=== PATIENT | male | born 1960 | race Caucasian/White ===

== ENCOUNTER 2020-03-29 11:50 | Emergency (ER) | payer BC ==
[~2020-03-29] VITALS: Ht 180.3 cm; Wt 95.5 kg
[2020-03-29] MEDS ORDERED: naproxen (11:57)
[2020-03-29] MEDS ORDERED: DERMABOND TOPICAL SKIN ADHESIVE TOP ONE (13:30)
[2020-03-29] MEDS ORDERED: BOOSTRIX/ADACEL VACCINE (DIPHTH/PERTUSS/ACELL/TETANUS) 0.5ML SYR IM ONE (13:30)
[2020-03-29] MEDS ORDERED: LIDOCAINE 1% MDV 20ML VIAL SC ONE (13:30)
[2020-03-29] MEDS ORDERED: KEFL500C17 PO (14:02)
[2020-03-29 14:10] VITALS: BP 128/83
--- NOTE | 2020-03-29 15:45 | REP ---
REASON FOR EXAM: Injury to the second digit of the left hand. There are no priors for comparison. FINDINGS: There is soft tissue injury to the fingertip 2nd digit. The joint spaces are symmetric and relatively well maintained. There is no evidence of acute fracture or destructive osseous lesion. IMPRESSION: Negative. Electronically Signed by Parish Montgomery DO 03/29/2020 04:16 P
== END 2020-03-29 14:18 | disposition home or self-care (01) ==
LOC: M ED 11:50
DX: S61.211A Laceration without foreign body of left index finger without damage to nail, initial encounter (principal); S61.213A Laceration without foreign body of left middle finger without damage to nail, initial encounter; W31.2XXA Contact with powered woodworking and forming machines, initial encounter; Y92.018 Other place in single-family (private) house as the place of occurrence of the external cause; Y93.9 Activity, unspecified; Y99.9 Unspecified external cause status; F17.218 Nicotine dependence, cigarettes, with other nicotine-induced disorders